=== PATIENT | male | born 1965 | race Caucasian/White ===

== ENCOUNTER 2023-09-04 09:28 | Emergency (ER) | payer BC, SELFPAY ==
--- NOTE | ~2023-09-04 | XR_ITS ---
Clinical Indication: Cough AP and lateral views of the chest: Comparison: None Findings: There is left basilar airspace opacity, compatible with left lower lobe pneumonia. Right dat ng clear. Cardiomediastinal silhouette is within normal limits. Bones and soft tissues are unremarka ble. Impression: Left lower lobe pneumonia. Reviewed, dictated and finalized at [facility]. Impression: Left lower lobe pneumonia.
[2023-09-04 09:31] VITALS: BP 188/92; PULSE 98; RESP 18; TEMP 36.9; O2SAT 100
[2023-09-04 09:43] VITALS: O2SAT 100
[2023-09-04 09:44] VITALS: PULSE 98
[2023-09-04 10:05] LABS: Basophils Percent Auto 0.2 % (0.2-1.2); Eosinophils Absolute Auto 0.3 K/mm3 (0-0.3); Eosinophils Percent Auto 2.7 % (0-4.4); Hematocrit 33.8 % (42.0-52.0); Hemoglobin 11.5 g/dL (14.0-18.0); Immature Granulocyte Absolute 0.06 K/mm3 (0.00-0.031); Immature Granulocyte Percent A 0.5 % (0-0.5); Lymphocytes Absolute Auto 2.47 K/mm3 (0.9-3.2); Lymphocytes Percent Auto 19.7 % (18.3-44.2); Mean Corpuscular Hemoglobin 30.3 pg (26-34); Mean Corpuscular Volume 89.2 fl (80-100); Mean Platelet Volume 9.1 fl (7.4-10.4); Monocytes Percent Auto 8.1 % (2.6-8.5); Neutrophils Absolute Auto 8.7 K/mm3 (1.3-6.7); Neutrophils Percent Auto 68.8 % (45.5-73.1); Platelet Count Result 301 k/mm3 (150-375); Red Blood Count 3.79 M/mm3 (4.6-6.20); Red Cell Distribution Width 12.3 % (11.5-14.5); White Blood Count 12.6 K/mm3 (4.5-10.0)
[2023-09-04 10:16] LABS: Alanine Aminotransferase 7 U/L (6-50); Albumin Level 3.9 g/dL (3.5-5.1); Alkaline Phosphatase 67 U/L (38-126); Anion Gap 11 mmol/L (4-12); Aspartate Amino Transferase 16 U/L (17-59); Bilirubin,Total 0.7 mg/dL (0.2-1.3); Blood Urea Nitrogen 35 mg/dL (9-20); Calcium 8.7 mg/dL (8.4-10.2); Carbon Dioxide 25 mmol/L (22-30); Chloride 103 mmol/L (98-107); Estimated CRCL calculation 61 ml/min; Estimated Glomerular Filt Rate 44; Glucose 192 mg/dL (65-110); Potassium 3.8 mmol/L (3.4-5.0); Sodium 139 mmol/L (137-145)
--- NOTE | 2023-09-04 11:03 | ED.SOB ---
HPI - SOB/Dyspnea General Chief Complaint: Shortness of Breath/Dyspnea Stated Complaint: cough Time Seen by Provider: 09/04/23 09:32 Source: patient Mode of arrival: EMS Limitations: no limitations History of Present Illness HPI Narrative: 58-year-old with a history of diabetes, hypertension here with complaints of cough which has been ongoing for past 2 weeks he states that intermittently he gets short of breath. Cough at times is productive at times it is clear to yellow in color. He states that every time he coughs he gets rib pain. He is presently on Zithromax with no relief MD elicited complaint: shortness of breath Pertinent past history: diabetes Onset (ago): week(s) (2) Timing: intermittent Severity: moderate Exacerbating factors: nothing Relieving factors: nothing Associated symptoms: chest pain and sputum production (clear to Yellow) Treatment prior to arrival: none Related Data Home oxygen amount: none Allergies Allergy/AdvReac Type Severity Reaction Status Date / Time tetracycline AdvReac Swelling Verified 09/04/23 09:42 Review of Systems Review of Systems: All systems reviewed & are unremarkable except as noted in HPI and below Constitutional: Constitutional: Reports no additional constitutional complaints Eyes: Eyes: Reports no additional eye complaints ENT: Reports system reviewed and no additional complaints, except as documented Cardiovascular: Cardiovascular: Reports no additional cardiovascular complaints Respiratory: Respiratory: Reports as per HPI Gastrointestinal: Gastrointestinal: Reports no additional gastrointestinal complaints Musculoskeletal: Musculoskeletal: Reports no additional musculoskeletal complaints Integumentary/Breasts: Skin/Breast: Reports system reviewed and no additional complaints, except as docu Neurologic: Reports system reviewed and no additional complaints, except as documented Exam Narrative: GENERAL: Well-appearing, well-nourished, and in no acute distress. HEAD: Normocephalic, atraumatic. EYES: PERRLA and EOMI. ENT: Nares clear, no rhinorrhea or epistaxis. Mucous membranes moist. NECK: Supple. CHEST: Clear to auscultation. No respiratory distress. HEART: Regular rate and rhythm. No murmur heard. Normal peripheral pulses. ABDOMEN: Soft, nontender, nondistended, normal active bowel sounds. EXTREMITIES: Normal range of motion. No edema. SKIN: Warm, dry, no rash. NEURO: No focal deficits. Alert and oriented x3. PSYCH: Normal mood and affect. Course Course Emergency Course: Patient comfortably resting on the stretcher in no discomfort with a SpO2 of 96%. I did inform him about his lab work, chest x-ray. We will add cefdinir to his present regimen Vital Signs Vital signs: Vital Signs Temperature 36.9 C 09/04/23 09:31 Pulse Rate 98 09/04/23 09:31 Respiratory Rate 18 09/04/23 09:31 Blood Pressure 188/92 H 09/04/23 09:31 Pulse Oximetry 100 09/04/23 09:31 Oxygen Delivery Room Air 09/04/23 09:31 Temperature 36.9 C 09/04/23 09:31 Pulse Rate 98 09/04/23 09:44 Respiratory Rate 18 09/04/23 09:31 Blood Pressure 188/92 H 09/04/23 09:31 Pulse Oximetry 100 09/04/23 09:43 Oxygen Delivery Room Air 09/04/23 09:43 MDM - SOB/Dyspnea Differential Diagnosis Differential diagnosis: Likely acute exacerbation of chronic obstructive airways disease, congestive heart failure and community acquired pneumonia Medical Records Attestation: I reviewed the patient's medical records. Lab Data Attestation: I reviewed the patient's lab results. 09/04/23 09:49 09/04/23 09:49 Labs: Lab Results 09/04/23 Range/Units 09:49 WBC 12.6 H (4.5-10.0) K/mm3 RBC 3.79 L (4.6-6.20) M/mm3 Hgb 11.5 L (14.0-18.0) g/dL Hct 33.8 L (42.0-52.0) % MCV 89.2 (80-100) fl MCH 30.3 (26-34) pg MCHC 34.0 (32-36) g/dl RDW 12.3 (11.5-14.5) % Plt Count 301 (150-375) k/mm3 MPV 9.1 (7.4-10.4)
[2023-09-04 19:11] LABS: NT Pro B Type Natriuretic Pept 72 pg/mL (19.9-100)
== END 2023-09-04 11:49 ==
PROVIDERS: Emergency Provider Family Medicine; PCP Internal Medicine
DX: J18.9 Pneumonia, unspecified organism (principal); E11.9 Type 2 diabetes mellitus without complications; I10 Essential (primary) hypertension
CPT/HCPCS: 36415; 71046; 80053; 83880; 85025; 99284

== ENCOUNTER 2023-10-16 14:33 | Emergency (ER) | payer BC, SELFPAY ==
[2023-10-16 14:36] VITALS: BP 169/72; PULSE 92; RESP 18; TEMP 36.8; O2SAT 100
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
--- NOTE | 2023-10-16 16:14 | PC.NURSE ---
dead mail checker cab called for patient transport back to facility
[2023-10-16 16:20] VITALS: RESP 16
== END 2023-10-16 16:24 ==
PROVIDERS: Emergency Provider Physician Assistant; PCP Hospitalist
DX: T14.90XA Injury, unspecified, initial encounter (principal); E11.42 Type 2 diabetes mellitus with diabetic polyneuropathy; Y04.8XXA Assault by other bodily force, initial encounter
CPT/HCPCS: 99281